=== PATIENT | female | born 1980 | race Caucasian/White ===

== ENCOUNTER 2021-10-07 08:28 | Emergency (ER) | payer OTHER, SELFPAY ==
--- NOTE | ~2021-10-07 | XR_ITS ---
EXAMINATION: XR KNEE, LEFT CLINICAL INFORMATION: Injury. COMPARISON: None TECHNIQUE: Four views of the left knee. FINDINGS: There is mild reduction in the medial and patellofemoral compartment joint space without periarticular spurring or bony erosive changes. No joint effusion seen. There is no loose bodies. XR/XR knee LT 2V IMPRESSION: Early mild degenerative changes medial and patellofemoral compartment.
[2021-10-07 08:47] VITALS: BP 118/73; PULSE 81; RESP 18; TEMP 36.9; O2SAT 96; BMI 29.2
--- NOTE | 2021-10-07 09:18 | ED.LOWEXIN ---
HPI - Extremity Injury (Lower) General Chief Complaint: Extremity Injury, Lower <UMM [place] - Last Filed: 10/07/21 10:47> Stated Complaint: TWISTED L KNEE <UMM [place] - Last Filed: 10/07/21 10:47> Time Seen by Provider: 10/07/21 09:18 <UMM [place] - Last Filed: 10/07/21 10:47> Source: patient <UMM [place] - Last Filed: 10/07/21 10:47> Mode of arrival: ambulatory <[facility]M [place] - Last Filed: 10/07/21 10:47> Limitations: no limitations <UMM [place] Last Filed: 10/07/21 10:47> History of Present Illness HPI Narrative: 41 y/o female with history of obesity, history of new meniscal injury several years ago in the left knee who presents to the ER with left knee pain after she twisted it while going to the bathroom in the middle the night. She reports hearing a pop sensation. She is unable to bear weight due to pain. She reports the pain is under her kneecap and in the medial aspect of the knee. Worse with palpation and bending of the knee. Pain is improved with rest and immobilization. She denies any ankle, calf, thigh or hip pain. <UMM [place] - Last Filed: 10/07/21 10:47> MD complaint: knee injury <UMM [place] - Last Filed: 10/07/21 10:47> Onset (ago): hour(s) <UMM [place] - Last Filed: 10/07/21 10:47> Injury: Left: knee <UMM [place] Last Filed: 10/07/21 10:47> Type of Injury: unknown <UMM [place] Last Filed: 10/07/21 10:47> Place: home <UMM [place] Last Filed: 10/07/21 10:47> Severity: moderate <UMM [place] Last Filed: 10/07/21 10:47> Relieving factors: immobilization <UMM [place] - Last Filed: 10/07/21 10:47> Exacerbating factors: weight bearing, movement and palpation <UMM [place] - Last Filed: 10/07/21 10:47> Context: walking <UMM [place] - Last Filed: 10/07/21 10:47> Associated symptoms: snap/pop sensation, swelling and unable to bear weight <UMM [place] - Last Filed: 10/07/21 10:47> Other symptoms: none <UMM [place] - Last Filed: 10/07/21 10:47> Related Data Home Medications: Previous Rx's Medication Instructions Recorded hydrocodone 5 mg-acetaminophen 325 1 tab PO Q6H PRN #5 tab 10/07/21 mg tablet ibuprofen 600 mg tablet 600 mg PO Q8H PRN #20 tab 10/07/21 <UMM [place] - Last Filed: 10/07/21 10:47> Allergies/Adverse Reactions: Allergies Allergy/AdvReac Type Severity Reaction Status Date / Time No Known Allergies Allergy Unverified 07/15/20 19:17 [No Known Allergies*] <UMM [place] - Last Filed: 10/07/21 10:47> Review of Systems Review of Systems: Constitutional: No Fever, No Chills Cardiovascular: No Chest Pain, No SOB Gastrointestinal: No Nausea, No Vomiting Musculoskeletal: + joint pain, No Myalgias Skin: No Skin Lesions, No rash Neuro: No Weakness, No Numbness Heme/Lymph: No Bruising, No Lymphadenopathy <UMM [place] Last Filed: 10/07/21 10:47> [facility] Past Medical History Medical History: Medical History (Updated 10/07/21 @ 10:10 by UMM Paris) No known health problems <UMM [place] Last Filed: 10/07/21 10:47> Social History Social History: Social History Advance Directives: No Advance Directives Information Provided: No Patient : No <UMM [place] Last Filed: 10/07/21 10:47> Physical Exam Vital Signs: Vital Signs: Last Vital Signs Temp 98.4 F 10/07/21 08:47 Pulse 81 10/07/21 08:47 Resp 18 10/07/21 08:47 BP 118/73 12/10/21 08:47 Pulse Ox 96 10/07/21 08:47 BMI result Body Mass Index 29.2 <UMM [place] - Last Filed: 10/07/21 10:47> Vital Signs: Last Vital Signs Temp 98.4 F 10/07/21 08:47 Pulse 81 10/07/21 08:47 Resp 18 10/07/21 08:47 BP 118/73 10/07/21 08:47 Pulse Ox 96 10/07/21 08:47 BMI result Body Mass Index 29.2 <Maikel Holguin MD - Last Filed: 10/07/21 17:27> Appearance: Alert. Oriented X3. No acute distress. HEENT: normal inspection CVS: Normal heart rate and rhythm. Pulses normal. Respiratory: No respiratory distress. Skin: Skin warm and dry. Normal skin color. Normal skin turgor. No rashes. Extremities: Left knee with mild generalized swelling, no erythema or warmth. No point tenderness. Normal passive range of motion with no joint laxity on exam, negative anterior drawer test. Mild tenderness throughout medial joint line. No calf tenderness. Neuro: Oriented X 3. Unable to assess gait due to pain. <UMM [place] - Last Filed: 10/07/21 10:47> Course Course Course Narrative: 41-year-old female with history of obesity and prior meniscal injury in the left knee presents to the ER with left knee pain after she heard a pop while walking this morning. Mild swelling on examination without any joint laxity appreciated. X-ray showing some mild degenerative changes, no bony injury. She most likely sprained her knee, will treat conservatively with rest, ice, compression and elevation. For crutches provided for support. She is encourage follow-up with orthopedics if no improvement in her pain. Patient expressed understanding and agrees with plan. Stable for discharge home with supportive care. <UMM [place] - Last Filed: 10/07/21 10:47> Critical Care Time Critical Care Time Critical Care Time: No <UMM [place] - Last Filed: 10/07/21 10:47> Discharge Plan Discharge Clinical Impression: Left knee sprain Qualifiers: Encounter type: initial encounter Involved ligament of knee: unspecified ligament Qualified Code(s): S83.92XA - Sprain of unspecified site of left knee, initial encounter <UMM [place] - Last Filed: 10/07/21 10:47> Patient Disposition: Home, Self-Care <UMM [place] - Last Filed: 10/07/21 10:47> Instructions: Knee Sprain (ED) <UMM [place] - Last Filed: 10/07/21 10:47> Additional Instructions: Your x-ray today showed some mild degenerative changes, no acute injuries. Rest your knee and elevate your leg when possible. Recommend BRANDON wrap for support and compression. Use ice several times per day for the next 48 hours. You may bear weight as tolerated. If pain is too severe, use crutches until better. Take Motrin and/or Tylenol as needed for pain. Follow up with your doctor as needed. If you have ongoing pain despite the above measures recommend following up with orthopedics for further evaluation. Number below. <UMM [place] - Last Filed: 10/07/21 10:47> Prescriptions: New ibuprofen 600 mg tablet 600 mg PO Q8H PRN (Reason: pain) Qty: 20 RF: 0 hydrocodone-acetaminophen 5-325 mg tablet 1 tab PO Q6H PRN (Reason: pain) Qty: 5 RF: 0 <UMM [place] - Last Filed: 10/07/21 10:47> Referrals: Tara Stockton PA-C [Physician Information Technology Director] - 1 week (left knee pain) <UMM [place] - Last Filed: 10/07/21 10:47> Stand Alone Forms: Work/School Release <UMM [place] - Last Filed: 10/07/21 10:47> Interventions: ED Discharge Assessment Last Done: 10/07/21 10:29 <UMM [place] Last Filed: 10/07/21 10:47> Discharge Date/Time: 10/07/21 10:30 <UMM [place] Last Filed: 10/07/21 10:47>
== END 2021-10-07 10:30 | disposition home or self-care (01) ==
PROVIDERS: Emergency Provider Emergency Medicine
DX: S83.92XA Sprain of unspecified site of left knee, initial encounter (principal); M25.562 Pain in left knee; X58.XXXA Exposure to other specified factors, initial encounter; Y93.9 Activity, unspecified; Y92.9 Unspecified place or not applicable; Y99.9 Unspecified external cause status
CPT/HCPCS: 73560; 99283

== ENCOUNTER → 2021-10-31 09:20 | Outpatient (BNVA) | payer OTHER, SELFPAY | PROVIDERS: Visit Provider Physician Assistant | DX: S83.8X2A Sprain of other specified parts of left knee, initial encounter (principal) | CPT/HCPCS: 99202 ==

== ENCOUNTER 2021-11-09 08:53 | Outpatient (REF) | payer OTHER, SELFPAY ==
--- NOTE | ~2021-11-09 | MR_ITS ---
EXAMINATION: MR KNEE WITHOUT CONTRAST, LEFT CLINICAL INFORMATION: Left knee twisting injury. Medial pain. Pain and swelling. Injury on 10/07/2021. COMPARISON: Left knee radiographs dated 10/07/2021. TECHNIQUE: MRI of the knee without contrast was performed using routine sequences on a high-field scanner. FINDINGS: MENISCI: Medial Meniscus: Intact. Lateral Meniscus: Intact. LIGAMENTS: Cruciate: Intact Collateral: Intact EXTENSOR MECHANISM: The quadriceps and patellar tendons are intact. Borderline patella adrián. The TT-TG distance is within normal limits. There is focal marrow edema within the inferomedial aspect of the patella as well as more prominent marrow edema within the lateral aspect of the lateral femoral condyle. Findings are consistent with osseous contusions and likely indicate a prior lateral patellar dislocation. The patella is currently well seated within the trochlea. No associated fracture line or articular cartilage defect. ARTICULAR CARTILAGE/BONE: Patellofemoral Compartment: Intact articular cartilage. Medial Compartment: Focal weightbearing medial femoral condyle articular cartilage thinning with areas of [id number] loss. Tiny marginal osteophytes. Lateral Compartment: Intact articular cartilage. JOINT FLUID AND BURSAE: Trace joint effusion. MR/MR knee LT wo con IMPRESSION: 1. Osseous contusions at the inferomedial aspect of the patella as well as at the lateral aspect of the lateral trochlea, consistent with prior lateral patellar dislocation. No associated fracture or articular cartilage defect. Patella currently well seated within the trochlea. Borderline patella adrián. 2. Mild medial compartment osteoarthritis. Trace joint effusion. 3. No acute meniscal or ligamentous injury.
== END 2021-11-09 08:54 | disposition home or self-care (01) ==
LOC: HO.MRI 08:53
PROVIDERS: Visit Provider Physician Assistant
DX: S83.8X2A Sprain of other specified parts of left knee, initial encounter (principal); M25.462 Effusion, left knee
CPT/HCPCS: 73721

== ENCOUNTER 2023-11-27 08:02 | Emergency (ER) | payer OTHER, SELFPAY ==
--- NOTE | ~2023-11-27 | XR_ITS ---
EXAMINATION: XR ANKLE, LEFT CLINICAL INFORMATION: Twisting injury COMPARISON: None available. TECHNIQUE: AP, lateral, and mortise views of the left ankle. FINDINGS: Visualized portion of the distal tibia and fibula demonstrate no fracture. Ankle mortise is maintained. There is mild soft tissue swelling of the lateral ankle. No radiopaque foreign body. XR/XR ankle LT min 3V IMPRESSION: Soft tissue swelling of the lateral ankle without fracture.
--- NOTE | ~2023-11-27 | XR_ITS ---
EXAMINATION: XR FOOT, LEFT CLINICAL INFORMATION: Third, fourth and fifth metatarsal pain COMPARISON: None available. TECHNIQUE: AP, lateral, and oblique views of the left foot. FINDINGS: The bones and soft tissues are normal. No fracture. Alignment is anatomic. Joint spaces are maintained. XR/XR foot LT min 3V IMPRESSION: Normal left foot.
[2023-11-27 08:20] VITALS: BP 119/70; PULSE 83; RESP 18; TEMP 36.6; O2SAT 99; BMI 28.8
--- NOTE | 2023-11-27 09:46 | ED.LOWEXIN ---
HPI - Extremity Injury (Lower) General Chief Complaint: Extremity Injury, Lower Stated Complaint: twisted L ankle Time Seen by Provider: 11/27/23 08:54 Source: patient and RN notes reviewed Mode of arrival: ambulatory Limitations: no limitations History of Present Illness HPI Narrative: This is a 43-year-old female, with no known medical problems, presenting to the emergency department with complaints of left ankle pain and bruising x 3 days. Patient states that while she was wearing high heels she accidentally inverted her left ankle 3 days ago . She did not hear a pop or a snap during this injury. She did not have pain. She was able to bear weight immediately following the injury She states that she occasionally gets pain with weight-bearing in her forefoot. She states that this morning she noticed increased bruising. Denies previous injury to this ankle in the past. Denies taking any medications at home to treat her current symptoms. She did not fall to the ground, no head strike or loss of consciousness. No chest pain, shortness breast, abdominal pain, nausea, vomiting or diarrhea. No other complaints or concerns at this time. MD complaint: ankle injury and foot injury Onset (ago): day(s) Type of Injury: inversion Place: street/outdoors Severity: mild Relieving factors: nothing Exacerbating factors: weight bearing Context: walking Associated symptoms: swelling Other symptoms: none Related Data Previous Rx's Medication Instructions Recorded hydrocodone 5 mg-acetaminophen 325 1 tab PO Q6H PRN pain #5 tabs 10/07/21 mg tablet ibuprofen 600 mg tablet 600 mg PO Q8H PRN pain #20 tabs 1221 ibuprofen 600 mg tablet 600 mg PO Q6H PRN pain #30 tabs 11/27/23 Allergies Allergy/AdvReac Type Severity Reaction Status Date / Time No Known Allergies Allergy Verified 11/27/23 08:20 [No Known Allergies*] Review of Systems Review of Systems: Yes all other systems are reviewed and are negative Constitutional: Constitutional: Reports as per [facility] Past Medical History Medical History (Updated 11/27/23 @ 09:57 by UMM Truong) Injury of meniscus of left knee No known health problems Social History Social History (Updated 10/31/21 @ 09:42 by Kemar Cuellar) Advance Directives: No Current occupational status: employed Current occupation: rt handed/construction driver Physical Exam Vital Signs: Vital Signs: Last Vital Signs Temp 98 F 11/27/23 08:20 Pulse 83 11/27/23 08:20 Resp 18 11/27/23 08:20 BP 119/70 11/27/23 08:20 Pulse Ox 99 11/27/23 08:20 O2 Del Method Room Air 11/27/23 08:20 BMI result Body Mass Index 28.8 Const: General: cooperative, comfortable and no acute distress Orientation/consciousness: patient oriented x3 Limitations: no limitations HEENT: Head: Yes normal to inspection, Yes normocephalic and Yes atraumatic Ears: hearing grossly normal bilaterally General nose exam: Normal external nose present Face and sinus: Yes normal facial exam Mouth: Normal oral and palatal mucosa present, oropharynx normal and moist mucous membranes Throat: Yes posterior oropharynx normal Eyes: General: appearance normal, both eyes and all related structures Eyelids: Yes eyelids normal Conjunctivae: conjunctivae normal Sclerae: sclerae normal Pupils: Equal, round and reactive pupils present EOM: EOMs intact bilaterally Neck: Neck: Yes normal visual inspection, Yes full ROM and Yes no lymphadenopathy Lymphatic: no lymphadenopathy noted Chest: Chest palpation & inspection: normal inspection of the chest Resp: Effort & Inspection: normal respiratory effort and able to speak in complete sentences Auscultation: clear to auscultation bilaterally, no crackles, no rales, no rhonchi and no wheezes Cardio: Rate: regular rate Rhythm: regular rhythm Heart sounds: S1 normal heart sound present and S2 normal heart sound present GI: Inspection: Yes normal to inspection Skin: General skin exam: no rashes or lesions noted Trauma: no lacerations or abrasions Wounds: no wounds Neuro: General: patient oriented x3 and moves all extremities Cranial nerves: Yes Equal, round and reactive pupils present Extrem: Other: Diffuse ecchymosis noted to the ankle and dorsum of the foot. Patient has tenderness palpation along the medial and lateral malleolus as well as left 5th metatarsal. Full range of motion of the foot without difficulty. DP pulse 2 + General: Yes normal to inspection Right upper extremity: normal to inspection Left upper extremity: normal to inspection Right lower extremity: normal to inspection Course Reevaluation(s) Reevaluation #1: X-ray of the left foot and ankle did not reveal any bony abnormalities. Discussed with patient, discharged on ibuprofen given orthopedic referral if symptoms persist. Patient has no pain with weight-bearing, therefore crutches not warranted, given Ross wrap. Also given return precautions. Patient understands agrees with plan. Patient stable discharge. Time: 10:05 Medical Decision Making Medical Decision Making [facility] Narrative: This is a 43-year-old female, with no known medical problems, presenting to the emergency department with complaints of left ankle pain and discoloration. She twisted her left ankle and footx 5 days. On arrival, vital signs within normal limits. Patient has diffuse ecchymosis with tenderness palpation along the lateral and medial malleolus. She does have pain along the left 5th metatarsal. Full range of motion of the ankle without pain. Differential diagnoses include fracture, strain, sprain, contusion, less likely septic arthritis given mechanism of action and appearance of foot and ankle. Differential Diagnosis Differential Diagnoses: The differential diagnosis associated with the presentation includes See above Radiology Impression Discussion of test interpretation with radiology: I have reviewed the radiologist's reading. Radiologist Impression: EXAMINATION: XR ANKLE, LEFT CLINICAL INFORMATION: Twisting injury COMPARISON: None available. TECHNIQUE: AP, lateral, and mortise views of the left ankle. FINDINGS: Visualized portion of the distal tibia and fibula demonstrate no fracture. Ankle mortise is maintained. There is mild soft tissue swelling of the lateral ankle. No radiopaque foreign body. XR/XR ankle LT min 3V IMPRESSION: Soft tissue swelling of the lateral ankle without fracture. Dictated By: Holden Diggs MD EXAMINATION: XR FOOT, LEFT CLINICAL INFORMATION: Third, fourth and fifth metatarsal pain COMPARISON: None available. TECHNIQUE: AP, lateral, and oblique views of the left foot. FINDINGS: The bones and soft tissues are normal. No fracture. Alignment is anatomic. Joint spaces are maintained. XR/XR foot LT min 3V IMPRESSION: Normal left foot. Dictated By: Samy Robbins MD Discharge Plan Discharge Clinical Impression: Ankle sprain and strain Patient Disposition: Home, Self-Care Instructions: Ankle Sprain (ED), How to Use an Elastic Bandage (ED), R.I.C.E. Treatment (ED), Ankle Strain (ED) Additional Instructions: Your seen in the emergency department due to left foot and ankle pain. Your x-rays did not show any bony abnormalities. Please rest, ice, use Ross wrap, elevate your leg and foot You may take ibuprofen for pain. If you continue to have symptoms in your left foot and ankle, you may follow-up with Orthopedics, call to make an appointment. Prescriptions: New ibuprofen 600 mg tablet 600 mg PO Q6H PRN (Reason: pain) Qty: 30 0RF No Action ibuprofen 600 mg tablet 600 mg PO Q8H PRN (Reason: pain) Qty: 20 0RF hydrocodone-acetaminophen 5-325 mg tablet 1 tab PO Q6H PRN (Reason: pain) Qty: 5 0RF Referrals: [facility] [Provider Group]
[2023-11-27 10:30] VITALS: BP 121/75; PULSE 73; RESP 16; TEMP 36.3; O2SAT 98
== END 2023-11-27 10:34 | disposition home or self-care (01) ==
PROVIDERS: Emergency Provider Emergency Medicine Emergency Medical Services
DX: S93.402A Sprain of unspecified ligament of left ankle, initial encounter (principal); X50.1XXA Overexertion from prolonged static or awkward postures, initial encounter; Y93.9 Activity, unspecified; Y92.9 Unspecified place or not applicable; Y99.8 Other external cause status
CPT/HCPCS: 73610; 73630; 99283; 99284